=== PATIENT | female | born 1950 | race Caucasian/White ===

== ENCOUNTER 2016-12-06 09:14 | Day surgery (SDC) | payer OTHER ==
[2016-12-06] MEDS ORDERED: NS 500 ML IV 500 ML IV ONE (10:08)
[2016-12-06] MEDS ORDERED: TETRACAINE 0.5% OPHTH 1 DOSE AFFEYE ONE ×4 (11:30→13:47)
[2016-12-06] MEDS ORDERED: VIGAMOX 0.5% OPHTH 1 DOSE AFFEYE ONE ×5 (11:35→13:59)
[2016-12-06] MEDS ORDERED: PROLENSA OPHTH 1 DOSE AFFEYE ONE (11:46)
[2016-12-06] MEDS ORDERED: ALPHAGAN-P OPHTH 1 DOSE AFFEYE ONE (11:47)
[2016-12-06] MEDS ORDERED: AK-DILATE 2.5% OPHTH 1 DOSE OP ONE ×3 (11:48→11:50)
[2016-12-06] MEDS ORDERED: MYDRIACIL OPHTH 1 DOSE AFFEYE ONE ×3 (11:48→11:50)
[2016-12-06] MEDS ORDERED: CYCLOGYL 1% OPHTH 1 DOSE OP ONE ×3 (11:48→11:50)
[2016-12-06] MEDS ORDERED: BETADINE OPHTH SOLN 5% EACHEYE ONE (13:40)
[2016-12-06] MEDS ORDERED: XYLOCAINE-MPF 1% IJ ONE ×2 (13:43→13:47)
[2016-12-06] MEDS ORDERED: ADRENALINE CHL INJ IJ ONE ×2 (13:43→13:47)
[2016-12-06] MEDS ORDERED: DUOVISC IO ONE ×2 (13:43→13:47)
[2016-12-06] MEDS ORDERED: BSS OPHTH (PLAIN) 500 ML with VANCOMYCIN HCL 500 MG VIAL 25 MG, ADRENALINE CHL INJ 1 MG IR ONE ×6 (13:45)
[2016-12-06 14:28] VITALS: BP 176/88
== END 2016-12-06 14:25 | disposition home or self-care (01) ==
LOC: SURG1 09:14
PROVIDERS: ATTEND Ophthalmology
PROC: 08DK3ZZ Extraction of Left Lens, Percutaneous Approach (ICD-10-PCS; principal; 2016-12-06 20:00)
PROC: 08RK3JZ Replacement of Left Lens with Synthetic Substitute, Percutaneous Approach (ICD-10-PCS; principal; 2016-12-06 20:00)
DX: H25.12 Age-related nuclear cataract, left eye (principal); H25.012 Cortical age-related cataract, left eye; H52.222 Regular astigmatism, left eye
CPT/HCPCS: A4217; J0170; J3370

== ENCOUNTER 2016-12-20 07:10 | Day surgery (SDC) | payer OTHER ==
[~2016-12-20 07:10] MED LIST: AK-DILATE 2.5% OPHTH 1 DOSE OP ONE; ALPHAGAN-P OPHTH 1 DOSE AFFEYE ONE; CYCLOGYL 1% OPHTH 1 DOSE OP ONE; DUREZOL OPHTH 1 DOSE AFFEYE ONE; MYDRIACIL OPHTH 1 DOSE AFFEYE ONE; NS 500 ML IV 500 ML IV ONE; PROLENSA OPHTH 1 DOSE AFFEYE ONE; TETRACAINE 0.5% OPHTH 1 DOSE AFFEYE ONE; VIGAMOX 0.5% OPHTH 1 DOSE AFFEYE ONE
[2016-12-20] MEDS ORDERED: TETRACAINE 0.5% OPHTH 1 DOSE AFFEYE ONE ×5 (07:15→09:16)
[2016-12-20] MEDS ORDERED: DUREZOL OPHTH 1 DOSE AFFEYE ONE (07:15)
[2016-12-20] MEDS ORDERED: VIGAMOX 0.5% OPHTH 1 DOSE AFFEYE ONE ×3 (07:15→07:25)
[2016-12-20] MEDS ORDERED: PROLENSA OPHTH 1 DOSE AFFEYE ONE (07:26)
[2016-12-20] MEDS ORDERED: ALPHAGAN-P OPHTH 1 DOSE AFFEYE ONE (07:27)
[2016-12-20] MEDS ORDERED: CYCLOGYL 1% OPHTH 1 DOSE OP ONE ×3 (07:28→07:32)
[2016-12-20] MEDS ORDERED: MYDRIACIL OPHTH 1 DOSE AFFEYE ONE ×3 (07:28→07:32)
[2016-12-20] MEDS ORDERED: AK-DILATE 2.5% OPHTH 1 DOSE OP ONE ×3 (07:28→07:32)
[2016-12-20] MEDS ORDERED: ADRENALINE CHL INJ IJ ONE ×2 (08:54→09:31)
[2016-12-20] MEDS ORDERED: XYLOCAINE-MPF 1% IJ ONE ×2 (08:54→09:31)
[2016-12-20] MEDS ORDERED: BETADINE OPHTH SOLN 5% EACHEYE ONE ×2 (08:55→09:16)
[2016-12-20] MEDS ORDERED: DUOVISC IO ONE ×2 (08:55→09:31)
[2016-12-20] MEDS ORDERED: TobraDEX OPHTH SUSP 1 DOSE AFFEYE ONE ×2 (08:55→09:41)
[2016-12-20] MEDS ORDERED: BSS OPHTH (PLAIN) 500 ML with VANCOMYCIN HCL 500 MG VIAL 25 MG, ADRENALINE CHL INJ 1 MG IR ONE ×3 (09:31)
[2016-12-20 10:03] VITALS: BP 134/68
[2016-12-20] MEDS ORDERED: DIPRIVAN VIAL ONE (15:42)
== END 2016-12-20 10:05 | disposition home or self-care (01) ==
LOC: SURG1 07:10
PROVIDERS: ATTEND Ophthalmology
PROC: 08RJ3JZ Replacement of Right Lens with Synthetic Substitute, Percutaneous Approach (ICD-10-PCS; principal; 2016-12-20 07:30)
PROC: 08DJ3ZZ Extraction of Right Lens, Percutaneous Approach (ICD-10-PCS; principal; 2016-12-20 07:30)
DX: H25.11 Age-related nuclear cataract, right eye (principal); H25.011 Cortical age-related cataract, right eye; H52.221 Regular astigmatism, right eye
CPT/HCPCS: A4217; J0170; J3370; J3490